=== PATIENT | male | born 1985 | race Caucasian/White ===

== ENCOUNTER 2018-04-18 10:33 | Emergency (ER) | payer OTHER ==
[2018-04-18] MEDS: IBUPROFEN 800 MG TAB PO (11:00)
== END 2018-04-18 12:16 | disposition home or self-care (01) ==
LOC: M ED 10:33
DX: S76.811A Strain of other specified muscles, fascia and tendons at thigh level, right thigh, initial encounter (principal); X50.0XXA Overexertion from strenuous movement or load, initial encounter; Y92.89 Other specified places as the place of occurrence of the external cause; Y93.89 Activity, other specified; Y99.0 Civilian activity done for income or pay
CPT/HCPCS: 76857

== ENCOUNTER 2018-11-02 09:53 | Outpatient (RCR) | payer OTHER ==
[~2018-11-02 09:53] MED LIST: IBUP40TA PO
== END 2018-11-03 ==
LOC: M PT 09:53
PROVIDERS: ATTEND Orthopaedic Surgery
DX: Z47.1 Aftercare following joint replacement surgery (principal); M16.9 Osteoarthritis of hip, unspecified; M25.551 Pain in right hip
CPT/HCPCS: 97035; 97110; 97161; G0283

== ENCOUNTER 2018-11-25 13:18 | Outpatient (RCR) | payer OTHER | END 2018-12-04 | LOC: M PT 13:18 | PROVIDERS: ATTEND Orthopaedic Surgery | DX: Z47.1 Aftercare following joint replacement surgery (principal); M16.9 Osteoarthritis of hip, unspecified; M25.551 Pain in right hip ==

== ENCOUNTER → 2019-01-24 | Outpatient (CLI) | payer OTHER | LOC: M OUTALCOH 08:19 | PROVIDERS: ATTEND Psychiatry & Neurology Psychiatry | DX: Z03.89 Encounter for observation for other suspected diseases and conditions ruled out (principal) ==

== ENCOUNTER → 2019-02-03 | Outpatient (RCR) | payer OTHER | LOC: M OUTALCOH 07:51 | PROVIDERS: ATTEND Psychiatry & Neurology Psychiatry | DX: F10.10 Alcohol abuse, uncomplicated (principal) ==

== ENCOUNTER 2019-03-02 11:04 | Outpatient (RCR) | payer OTHER | END 2019-03-05 | LOC: M OUTALCOH 11:04 | PROVIDERS: ATTEND Psychiatry & Neurology Psychiatry | DX: F10.10 Alcohol abuse, uncomplicated (principal) ==

== ENCOUNTER 2019-03-31 10:46 | Outpatient (RCR) | payer OTHER | END 2019-04-05 | LOC: M OUTALCOH 10:46 | PROVIDERS: ATTEND Psychiatry & Neurology Psychiatry | DX: F10.10 Alcohol abuse, uncomplicated (principal) ==

== ENCOUNTER 2019-04-28 09:00 | Outpatient (RCR) | payer OTHER | END 2019-05-06 | LOC: M OUTALCOH 09:00 | PROVIDERS: ATTEND Psychiatry & Neurology Psychiatry | DX: F10.10 Alcohol abuse, uncomplicated (principal) ==

== ENCOUNTER → 2020-09-25 | Outpatient (CLI) | payer OTHER ==
[~2020-09-25] MED LIST changes: +IBUP1TAB5 PO; -IBUP40TA PO
[2020-09-25 13:53] LABS: HEMATOCRIT 42.4 % (42.0-52.0); HEMOGLOBIN 14.1 g/dl (13.5-17.5); RED BLOOD COUNT 4.57 10^6/uL (4.30-6.10); WHITE BLOOD COUNT 5.7 10^3/uL (4.0-10.0)
[2020-09-25 13:54] LABS: BASO % 0.4 % (0.0-1.0); EOS # 0.1 10^3/uL (0.0-0.5); EOS % 1.9 % (0.0-3.0); LYMPH # 1.6 10^3/uL (1.5-5.0); LYMPH % 27.6 % (24.0-44.0); MEAN CORPUSCULAR HEMOGLOBIN 30.9 pg (27.0-33.0); MEAN CORPUSCULAR HGB CONC 33.3 g/dl (32.0-36.5); MEAN CORPUSCULAR VOLUME 92.8 fl (80.0-96.0); MONO # 0.8 10^3/uL (0.0-0.8); MONO % 13.5 % (0.0-5.0); NEUTROPHILS # 3.2 10^3/uL (1.5-8.5); NEUTROPHILS % 56.2 % (36.0-66.0); PLATELET COUNT, AUTOMATED 263 10^3/uL (150-450)
[2020-09-25 14:31] LABS: ERYTHROCYTE SEDIMENTATION RATE 6 mm/hr (0-15)
== END ==
LOC: M PLALAB 09:51
PROVIDERS: ATTEND Physician Assistant
DX: M25.551 Pain in right hip (principal); Z96.641 Presence of right artificial hip joint

== ENCOUNTER → 2020-10-19 | Outpatient (CLI) | payer OTHER | LOC: M LABSMTC 08:56 | PROVIDERS: ATTEND Pediatrics | DX: Z20.822 Contact with and (suspected) exposure to COVID-19 (principal) | CPT/HCPCS: C9803; U0003 ==

== ENCOUNTER → 2020-12-03 | Outpatient (CLI) | payer OTHER ==
[2020-12-03 14:49] LABS: BASO % 0.4 % (0.0-1.0); EOS # 0.1 10^3/uL (0.0-0.5); EOS % 1.8 % (0.0-3.0); HEMATOCRIT 42.8 % (42.0-52.0); HEMOGLOBIN 14.3 g/dl (13.5-17.5); LYMPH # 1.3 10^3/uL (1.5-5.0); LYMPH % 25.6 % (24.0-44.0); MEAN CORPUSCULAR HEMOGLOBIN 31.2 pg (27.0-33.0); MEAN CORPUSCULAR HGB CONC 33.4 g/dl (32.0-36.5); MEAN CORPUSCULAR VOLUME 93.2 fl (80.0-96.0); MONO # 0.5 10^3/uL (0.0-0.8); MONO % 9.6 % (2.0-8.0); NEUTROPHILS # 3.1 10^3/uL (1.5-8.5); NEUTROPHILS % 62.2 % (36.0-66.0); PLATELET COUNT, AUTOMATED 237 10^3/uL (150-450); RED BLOOD COUNT 4.59 10^6/uL (4.30-6.10)
[2020-12-03 15:24] LABS: ERYTHROCYTE SEDIMENTATION RATE 5 mm/hr (0-15)
== END ==
LOC: M PLALAB 12:05
PROVIDERS: ATTEND Orthopaedic Surgery
DX: M25.551 Pain in right hip (principal)

== ENCOUNTER → 2020-12-12 | Outpatient (CLI) | payer OTHER ==
--- NOTE | 2020-12-12 08:47 | REP ---
INDICATION: RT HIP PAIN, S/P HIP REPLACEMENT. COMPARISON: Bilateral hip MRI dated 06/18/2018. TECHNIQUE: CT of the right hip without IV contrast. The study is performed with beam hardening reduction software. FINDINGS: There is a total hip arthroplasty. The components are tightly applied and in satisfactory positions and alignment. There is no evidence of loosening of the acetabular or femoral components. There is no fracture or dislocation. Mineralization is normal. There are no fluid collections or masses in the periarticular soft tissues. IMPRESSION: Total right hip arthroplasty without evidence of fracture, dislocation, loosening or periarticular soft tissue fluid collection. <Electronically signed by Tyrese Zuniga > 12/12/20 0897
== END ==
LOC: M RAD 08:22
PROVIDERS: ATTEND Orthopaedic Surgery
DX: M25.551 Pain in right hip (principal)

== ENCOUNTER → 2024-04-03 | Outpatient (CLI) | payer BC | LOC: M OUTALCOH 09:25 | PROVIDERS: ATTEND Psychiatry & Neurology Psychiatry | DX: Z03.89 Encounter for observation for other suspected diseases and conditions ruled out (principal) ==

== ENCOUNTER 2024-04-10 10:06 | Outpatient (RCR) | payer BC | END 2024-05-06 | LOC: M OUTALCOH 10:06 | PROVIDERS: ATTEND Psychiatry & Neurology Psychiatry | DX: Z03.89 Encounter for observation for other suspected diseases and conditions ruled out (principal) ==